=== PATIENT | male | born 1980 ===

== ENCOUNTER → 2016-08-30 | Outpatient (CLI) | payer BC ==
--- NOTE | 2016-08-30 15:27 | Diagnostic Imaging Report ---
Indication: COUGH Technique: 2 views of the chest Comparison: none. Findings: Lungs and pleural spaces are clear. Heart size is normal. Bones are unremarkable. Impression: No acute process
== END | disposition home or self-care (01) ==
LOC: RAD 10:38
DX: R05 Cough (principal)
CPT/HCPCS: 71020

== ENCOUNTER 2017-05-16 08:43 | Outpatient (CLI) | payer BC ==
--- NOTE | 2017-05-16 12:15 | Diagnostic Imaging Report ---
Indication: 36-year-old male outpatient with neck and shoulder pain Technique: Sagittal T1 FLAIR PROPELLER, sagittal T2 PROPELLOR, sagittal STIR, axial T2 PROPELLER, axial 3D COSMIC ASPIR images were obtained through the cervical spine Comparison: None Findings: There is slight bursal the normal cervical lordosis. Otherwise normal bony alignment. Vertebral body marrow signal is normal. Intrinsic cord signal is normal. The disc spaces are preserved. At C3-4, no significant disc bulge or protrusion. There is borderline narrowing of the spinal canal due to short pedicles, but no significant impingement on the cord. Slight uncinate hypertrophy results in mild narrowing of the right neural foramen. At C5-6, there is circumferential annular bulge and thickening of the posterior longitudinal ligament. However, this does not result in significant canal stenosis or impingement on the thecal sac or cord. The neural foramina are preserved. At the remaining disc levels, no significant disc bulge or protrusion, spinal stenosis, or neural foraminal narrowing. The included extraspinal soft tissues are unremarkable Impression: Mild degenerative changes, as detailed level by level basis above No acute bony trauma
== END 2017-05-16 10:43 | disposition home or self-care (01) ==
LOC: MRI 08:43
DX: M54.2 Cervicalgia (principal); M25.519 Pain in unspecified shoulder
CPT/HCPCS: 72141